=== PATIENT | female | born 1950 ===

== ENCOUNTER → 2020-03-23 | Outpatient (CLI) | payer MEDICARE | LOC: LAB SHORT 13:49 | DX: Z48.817 Encounter for surgical aftercare following surgery on the skin and subcutaneous tissue (principal); D48.5 Neoplasm of uncertain behavior of skin; D22.61 Melanocytic nevi of right upper limb, including shoulder; D22.62 Melanocytic nevi of left upper limb, including shoulder; D22.5 Melanocytic nevi of trunk; L57.0 Actinic keratosis; L08.9 Local infection of the skin and subcutaneous tissue, unspecified; L81.4 Other melanin hyperpigmentation; L82.1 Other seborrheic keratosis | CPT/HCPCS: 87070; 87205 ==